=== PATIENT | female | born 1940 | race Caucasian/White ===

== ENCOUNTER → 2024-03-16 16:47 | Outpatient (REF) | payer OTHER, SELFPAY ==
[2024-03-16 17:49] LABS: Urine Albumin Negative (Neg - Trace); Urine Bilirubin Negative (Negative); Urine Character Clear (Clear); Urine Color Yellow; Urine Glucose Negative (Negative); Urine Ketone Negative (Negative); Urine Leukocyte Negative (Negative); Urine Nitrite Negative (Negative); Urine Occult Blood Trace (Negative); Urine Specific Gravity 1.015 (<1.030); Urine Urobilinogen Negative (Neg - 1+)
[2024-03-16 18:01] LABS: Urine Bacteria Few (Negative); Urine White Cell 0-2 /HPF (0-5)
== END ==
LOC: CLAB 16:47
PROVIDERS: ATTENDING PHYSICIAN Specialist
DX: N39.0 Urinary tract infection, site not specified (principal)
CPT/HCPCS: 81003; 81015; 87086

== ENCOUNTER → 2024-04-06 07:04 | Outpatient (REF) | payer OTHER, SELFPAY | LOC: RCS 07:04 | PROVIDERS: ATTENDING PHYSICIAN Physician Assistant Medical | DX: R03.0 Elevated blood-pressure reading, without diagnosis of hypertension (principal); R01.1 Cardiac murmur, unspecified | CPT/HCPCS: 93306 ==

== ENCOUNTER → 2024-06-16 10:25 | Outpatient (REF) | payer OTHER, SELFPAY ==
[2024-06-16 13:11] LABS: HDL Cholesterol 69 mg/dl; LDL Cholesterol, Calculated 120 mg/dl; Total Cholesterol 223 mg/dl (50-199); Triglyceride 171 mg/dl (10-149); Very Low Density Lipoprotein 34 mg/dl (0-30)
[2024-06-16 13:44] LABS: TSH Reflex To Free T4 1.35 uIU/ml (0.47-4.68)
== END ==
LOC: HWWDC 10:25
PROVIDERS: ATTENDING PHYSICIAN Physician Assistant Medical
DX: Z12.31 Encounter for screening mammogram for malignant neoplasm of breast (principal); E78.5 Hyperlipidemia, unspecified; I10 Essential (primary) hypertension; K21.9 Gastro-esophageal reflux disease without esophagitis
CPT/HCPCS: 36415; 77063; 77067; 80061; 84443

== ENCOUNTER 2024-09-30 21:58 | Emergency (ER) | payer OTHER, SELFPAY ==
[2024-09-30 22:01] VITALS: BP 149/80
[2024-09-30 22:28] VITALS: BMI 26.8
[2024-09-30 22:31] VITALS: BP 111/92
--- NOTE | 2024-09-30 22:50 | ED.GENMED ---
History of Present Illness
General
Chief Complaint: Cold/Flu/URI Symptoms
Source: patient and family
Time Seen by Provider: 09/30/24 22:20
History of Present Illness
History of Present Illness:
This patient is an 84-year-old female presents emergency department with complaints of cough for the last 2 to 3 days. This is without blood, shortness of breath, fevers, sweats, chills, nausea, vomiting, chest pain or pressure, sick contacts, sore
throat, rhinorrhea. Patient states she had COVID about 2 weeks ago and felt that she was improving however cough has been bothersome to her over the last few days and she is worried that she may have pneumonia. She did take Mucinex earlier in the
evening which was helpful.
Past History
Past History
ED Past Medical History: Cancer (Lymphoma), GERD, Hypercholesterolemia and Other (Microscopic hematuria, osteoarthritis, spinal stenosis)
ED Past Surgical History: Gynecological (Hysterectomy, cystocele and sling), Orthopedic (Left total knee replacement, right rotator cuff) and Urological (Urethral suspension)
Social History
Tobacco: Non-smoker
Alcohol: Occasional
Drug: None
Personal:
Living: with family
Employment: Retired
Family History
Family History: Other (Noncontributory)
Phy Exam
Physical Exam
Physical Exam:
GENERAL: Alert , in no apparent distress
EYE: pupils equal and reactive
NECK: Supple, no significant adenopathy.
ENT: o/p clr, mmm, no trismus, no drool.
CARDIAC: Regular rate and rhythm, 2 out of 6 systolic murmur noted.
LUNGS: Clear breath sounds bilaterally, no acute respiratory distress, no wheezes/rales/rhonchi, occasional cough noted
ABDOMEN: Soft, without focal tenderness, no r/g, no cvat
NEUROLOGICAL: Alert and oriented, no focal neuro deficits
SKIN: Warm and dry, skin intact.
MUSCULOSKELETAL: No edema, well perfused.
PSYCH: Normal and appropriate interaction.
Course
Orders/Labs/Results
Orders:
Orders
09/30/24 22:21
CR Chest - 2 Views Urgent
Comment:
Reason For Exam: COUGH
Vital Signs
Initial and Last Documented VS:
Initial Vital Signs
Temp Pulse Resp BP Pulse Ox
97.9 F 88 20 149/80 98
09/30/24 22:01 09/30/24 22:01 09/30/24 22:01 09/30/24 22:01 09/30/24 22:01
Last Documented Vital Signs
Temp Pulse Resp BP Pulse Ox
97.9 F 83 20 111/92 96
09/30/24 22:01 09/30/24 22:31 09/30/24 22:31 09/30/24 22:31 09/30/24 22:31
*Critical Care Note
Total Time (30-74mins, 75-104mins- exclusive of procedures): Not Applicable
Update Note
Update Note:
Patient presents to the Emergency Department with __cough
Number and Complexity of Problems Addressed at the Encounter
� Chronic conditions affecting care:
� Acute Exacerbation and/or Progression of Chronic Illness:
� Differential Diagnosis includes: But not limited to reflux, allergies, infection, etc. etc.
Amount and/or Complexity of Data to be Reviewed and Analyzed
� I performed an independent evaluation of and my interpretation is:
EKG:
CT:
Xrays: Chest x-ray NAD compared to prior from November 01, 2021
Laboratory Studies:
Other:
� Review of other/old records reveals: I noted a murmur on exam, with this I looked into prior echo, I printed out her echo from April of this year which demonstrates MR and AAS and made patient aware.
� Clinical information was obtained by an independent historian: Daughter who is at bedside
� Prescriptions/Medications Considered but not given:
� Further testing considered but not performed:
Risk of Complications and/or Morbidity or Mortality of Patient Management
� Social determinants of health affecting care:
� Discussion with other providers (PCP, Hospitalists, Consultants, etc):
� Escalation of care including admission/observation vs risk of discharge considered: Patient remained stable here, no respiratory distress, minimal to no cough appreciated. Discussed with her chest x-ray findings, importance of
follow-up and reasons to return to the ER.
ED Attending Note
-
Portions of this chart may have been created with voice recognition software.� Occasional wrong word or��sound alike� substitutions may have occurred due to the inherent limitations of voice recognition software.
Discharge Plan
Departure
Patient Disposition: Home (Routine Discharge)
Date of Disposition: 09/30/24
Time of Disposition: 23:41
Patient with high blood pressure during this ER visit?: Yes
Condition: Good
Discharge Problem:
Cough
Instructions: Cough in adults, BLOOD PRESSURE
Prescriptions:
No Action
ezetimibe 10 MG tablet
10 mg PO DAILY Qty: 0 0RF
aspirin 81 MG tablet,delayed release (DR/EC)
1 tab PO MOWEFR
pantoprazole [Protonix] 20 MG tablet,delayed release (DR/EC)
20 mg PO QPM
methenamine hippurate 1 GRAM tablet
1 g PO DAILY
solifenacin 5 MG tablet
5 mg PO DAILY
calcium carbonate-vitamin D3 [Oyster Shell Calcium-Vit D3] 500 MG tablet
1 tab PO DAILY
red yeast rice 600 MG capsule
1,200 mg PO DAILY
multivitamin with folic acid [Tab-A-Daniela] 1 TABLET tablet
1 tab PO MOTH
icosapent ethyl [Vascepa] 1 GM capsule
1 g PO DAILY
Referrals:
Stephanie Hernandez PA [Family Provider] - Follow up in 2-3 days
Activity Restrictions/Additional Instructions:
IF YOU DEVELOP BLEEDING, HIGH FEVER, SHORTNESS OF BREATH, CHEST PAIN, GET WORSE, DO NOT GET BETTER, OR OTHER WORRISOME SIGNS, PLEASE RETURN TO THE ER IMMEDIATELY.
Interventions
Interventions:
*Risk Screen - Suicide Last Done: 09/30/24 22:01
*General Assessment Last Done: 09/30/24 22:28
*Neglect/Abuse Screening Last Done: 09/30/24 22:01
*ED COVID-19 Vaccine History Last Done: 09/30/24 22:28
ED- Neurological Assessment Last Done: 09/30/24 22:28
ED- Pulmonary Assessment Last Done: 09/30/24 22:28
ED-Skin Assessment Last Done: 09/30/24 22:28
Discharge Date and Time
Print Language: MARTINIQUAIS
== END 2024-09-30 23:47 | disposition home or self-care (01) ==
LOC: EMR 21:58
PROVIDERS: EMERGENCY PHYSICIAN Emergency Medicine; FAMILY PHYSICIAN Physician Assistant Medical
DX: R05.9 Cough, unspecified (principal); R03.0 Elevated blood-pressure reading, without diagnosis of hypertension
CPT/HCPCS: 99283; 71046

== ENCOUNTER → 2024-12-11 06:33 | Outpatient (REF) | payer OTHER, SELFPAY | LOC: MRI 3T 06:33 | PROVIDERS: ATTENDING PHYSICIAN Physician Assistant Medical; FAMILY PHYSICIAN Physician Assistant Medical | DX: M25.552 Pain in left hip (principal) | CPT/HCPCS: 73721 ==